=== PATIENT | male | born 1995 | race Caucasian/White ===

== ENCOUNTER 2019-11-15 10:21 | Emergency (ER) | payer BC, OTHER ==
[2019-11-15 10:52] LABS: Influenza B Molecular POSITIVE (Negative)
[2019-11-15 11:28] VITALS: BP 118/78
--- NOTE | 2019-11-15 11:30 | ED ---
Influenza-Like Illness - HPI Summary HPI Summary: This patient is a 23-year-old male presenting to the ED with a 3 day history of scratchy throat, cough, congestion and fevers at home. He is also endorsing sweats and chills. He denies any known sick contacts. He states he has been still eating and drinking okay. He endorses midsternal chest pain with cough, however has no production with cough. Denies any pain to the flanks, UTI symptoms, sinus pain or ear pain. - History of Current Complaint Chief Complaint: EDFever Time Seen by Provider: 11/15/19 10:59 Hx Obtained From: Patient Onset/Duration: Sudden Onset Severity: Moderate Associated Signs & Symptoms: Fever, T Max - 101.7, F/C, Myalgia, Cough, Sore Throat, Nasal Congestion Related Hx: Possible Flu/Infectious Exposure - Allergy/Home Medications Allergies/Adverse Reactions: Allergies Allergy/AdvReac Type Severity Reaction Status Date / Time No Known Allergies Allergy Verified 11/15/19 10:39 PMH/Surg Hx/FS Hx/Imm Hx Previously Healthy: Yes - Immunization History Hx Pertussis Vaccination: No Immunizations Up to Date: Yes Infectious Disease History: No Infectious Disease History: Denies: Traveled Outside the [place] in Last 30 Days - Social History Occupation: Employed Full-time Lives: With Family Alcohol Use: Occasionally Hx Substance Use: No Substance Use Type: Reports: None Hx Tobacco Use: No Smoking Status (MU): Never Smoked Tobacco Review of Systems Positive: Fever, Chills, Fatigue, Skin Diaphoresis Negative: Blurred Vision, Diplopia Positive: Sore Throat Negative: Palpitations, Chest Pain Positive: Cough. Negative: Shortness Of Breath Positive: Nausea. Negative: Abdominal Pain, Vomiting, Diarrhea Genitourinary: Negative Positive: no symptoms reported, see HPI Positive: Myalgia Skin: Negative All Other Systems Reviewed And Are Negative: Yes Physical Exam Triage Information Reviewed: Yes Vital Signs On Initial Exam: Initial Vitals Temp Pulse Resp BP Pulse Ox 101.7 F 104 19 164/95 99 11/15/19 10:32 11/15/19 10:32 11/15/19 10:32 11/15/19 10:32 11/15/19 10:32 Vital Signs Reviewed: Yes Appearance: Positive: Well-Appearing, Well-Nourished Skin: Positive: Warm, Skin Color Reflects Adequate Perfusion Head/Face: Positive: Normal Head/Face Inspection Eyes: Positive: EOMI, KATHERINE, Conjunctiva Clear Neck: Positive: Supple, No Lymphadenopathy Respiratory/Lung Sounds: Positive: Clear to Auscultation, Breath Sounds Present Musculoskeletal: Positive: Normal, Strength/ROM Intact Neurological: Positive: Speech Normal Psychiatric: Positive: Normal, Affect/Mood Appropriate AVPU Assessment: Alert Procedures - Sedation Patient Received Moderate/Deep Sedation with Procedure: No Diagnostics - Vital Signs Vital Signs Temp Pulse Resp BP Pulse Ox 11/15/19 10:32 101.7 F 104 19 164/95 99 - Laboratory Lab Results: Lab Results 11/15/19 Range/Units 10:38 Influenza A (Rapid) Not Reportable Influenza B (Rapid) Positive A (Negative) Lab Statement: Any lab studies that have been ordered have been reviewed, and results considered in the medical decision making process. Flu Symptom Course/Dx - Course Course Of Treatment: Patient is evaluated for chest cough, congestion without production, fevers, sweats, chills. On physical examination, patient appears well and nondiaphoretic. He does have a 101.7 temperature and has been taking tylenol and ibuprofen. Lungs CTA, RRR. He states he is feeling improved from 2 days ago. Influenza B+. Symptoms have been present for over 3 days, patient will not be given Tamiflu at this time. He is given Zofran for some mild nausea. He is also encouraged Tylenol and ibuprofen intermittently. He is given medicine with codeine for moderate to severe cough. He will follow up as needed. Note given for work. - Diagnoses Differential Diagnosis/HQI/PQRI: Positive: Influenza, Other - PNA Provider Diagnoses: Influenza A Discharge ED - Sign-Out/Discharge Documenting (check all that apply): Patient Departure - Discharge Plan Condition: Stable Disposition: HOME Prescriptions: guaiFENesin/CODIENE 100mg/10mg [Robitussin AC 100Mg-10Mg*] 10 ml PO BEDTIME # 120 udc MDD 40 guaiFENesin/CODIENE 100mg/10mg [Robitussin AC 100Mg-10Mg*] 10 ml PO BEDTIME # 120 udc MDD 40 Ondansetron ODT TAB* [Zofran 4 MG Odt TAB*] 4 mg PO Q6H PRN #12 tab.odt MDD 4 PRN Reason: Nausea Patient Education Materials: Influenza (ED) Forms: *School Release, *Work Release [facility] - Additional Instructions: Zofran up to 4 times daily as needed for nausea and vomiting Tylenol 650 mg and ibuprofen 600 mg, use intermittently Drink plenty of fluids and rest as much as possible Fever-free 24 hours prior to going back to work or school Robitussin with codeine 10mg four times daily as needed for cough - Billing Disposition and Condition Condition: STABLE Disposition: Home
== END 2019-11-15 11:22 | disposition home or self-care (01) ==
LOC: ED 10:21
DX: J09.X2 Influenza due to identified novel influenza A virus with other respiratory manifestations (principal)
CPT/HCPCS: 99282